=== PATIENT | male | born 1960 | race Caucasian/White ===

== ENCOUNTER → 2019-07-25 | Outpatient (CLI) | payer OTHER ==
--- NOTE | 2019-07-25 11:34 | US ---
EXAMINATION TYPE: US abdomen complete DATE OF EXAM: 07/25/2019 COMPARISON: NONE CLINICAL HISTORY: R10.30 Lower abdominal pain. EXAM MEASUREMENTS: Liver Length: 9.4 cm Gallbladder Wall: 0.3 cm CBD: 0.3 cm Spleen: 9.2 cm Right Kidney: 11.0 x 4.5 x 5.6 cm Left Kidney: 11.7 x 7.0 x 6.6 cm Pancreas: visualized portions wnl Liver: small left lobe cyst measures 0.5 x 0.5 x 0.7 cm Gallbladder: No stones seen Evidence for sonographic Farris's sign: No CBD: wnl Spleen: wnl Right Kidney: No hydronephrosis or masses seen Left Kidney: small cortical cyst measures 0.9 x 0.8 x 0.7 cm Upper IVC: wnl Abd Aorta: wnl Patient complains of lower abdominal pain. RLQ and LLQ imaged towards end of study. No definite abnor mality noted. The visualized liver is homogenous. Technologist Craig subcentimeter simple appearing thin-walled cyst in the left hepatic lobe. The intrahepatic portion of the IVC and visualized abdominal aorta are wi thin normal limits. There is no evidence of cholelithiasis. Common bile duct is unremarkable. The visualized portions of the pancreas are homogenous. The spleen is unremarkable. Kidneys are symmetr ic and free of hydronephrosis. No renal lesions are seen. IMPRESSION: No suspicious abnormality is seen to come for patient's symptoms of bilateral lower abdom inal pain.
== END | disposition home or self-care (01) ==
LOC: RADUSWWP 08:14
PROVIDERS: ATTEND Family Medicine
DX: R10.30 Lower abdominal pain, unspecified (principal)
CPT/HCPCS: 76700

== ENCOUNTER 2024-10-19 18:52 | Emergency (ER) | payer OTHER ==
[2024-10-19 19:06] VITALS: PULSE 70; RESP 18
--- NOTE | 2024-10-19 19:39 | ED ---
General Adult HPI - General Chief complaint: Extremity Injury, Upper Stated complaint: Right shoulder injury Time Seen by Provider: 10/19/24 19:05 Source: patient, RN notes reviewed, old records reviewed Mode of arrival: ambulatory Limitations: no limitations - History of Present Illness Initial comments: 64-year-old male presenting for evaluation of right shoulder pain. Patient has had pain for approximately 1 week. He has previous history of bilateral rotator cuff injury. He works a physically demanding job and does not remember a specific injury but does state that this is related to physical work. No fall. No difficulty breathing. No abdominal pain. No fever. No central chest pain. - Related Data Home Medications Medication Instructions Recorded Confirmed Propranolol HCl [Inderal Xl] 80 mg PO BID 04/01/15 04/01/15 raNITIdine HCL [Zantac] 300 mg PO DAILY 04/01/15 04/01/15 Previous Rx's Medication Instructions Recorded Ibuprofen [Motrin] 600 mg PO Q8HR PRN #24 tab 10/19/24 Allergies Allergy/AdvReac Type Severity Reaction Status Date / Time guaifenesin [From Mucinex] Allergy Unknown Verified 10/19/24 19:02 Review of Systems ROS Statement: Those systems with pertinent positive or pertinent negative responses have been documented in the HPI. ROS Other: All systems not noted in ROS Statement are negative. Past Medical History Past Medical History: GERD/Reflux, Hypertension, Neurologic Disorder Additional Past Medical History / Comment(s): MIGRAINES History of Any Multi-Drug Resistant Organisms: None Reported Past Surgical History: No Surgical Hx Reported Past Anesthesia/Blood Transfusion Reactions: No Reported Reaction Additional Past Anesthesia/Blood Transfusion Reaction / Comment(s): NO PRIOR ANESTHESIA HX Smoking Status: Current every day smoker Past Alcohol Use History: None Reported Past Drug Use History: None Reported - Past Family History Mother Family Medical History: No Reported History General Exam Limitations: no limitations General appearance: alert, in no apparent distress Head exam: Present: atraumatic, normocephalic Eye exam: Present: normal appearance, PERRL ENT exam: Present: normal exam Neck exam: Present: normal inspection Respiratory exam: Present: normal lung sounds bilaterally. Absent: respiratory distress, wheezes Cardiovascular Exam: Present: regular rate, normal rhythm GI/Abdominal exam: Present: soft. Absent: distended Extremities exam: Present: normal inspection. Absent: full ROM (Pain with range of motion of the right shoulder, distal pulses intact) Neurological exam: Present: alert, oriented X3 Psychiatric exam: Present: normal affect, normal mood Skin exam: Present: warm, dry, intact Course Vital Signs 10/19/24 19:03 Temperature 97.6 F Pulse Rate 70 Respiratory 18 Rate Blood Pressure 183/94 O2 Sat by Pulse 97 Oximetry Medical Decision Making - Medical Decision Making Was pt. sent in by a medical professional or institution (EMILY Mohr, INTERNAL GRINDER TENDER, urgent care, hospital, or jail...) When possible be specific @ -No Did you speak to anyone other than the patient for history (EMS, parent, family, police, friend...)? What history was obtained from this source @ -No Did you review nursing and triage notes (agree or disagree)? Why? @ -I reviewed and agree with nursing and triage notes Were old charts reviewed (outside hosp., previous admission, EMS record, old EKG, old radiological studies, urgent care reports/EKG's, jail records)? Report findings @ -No old charts were reviewed Differential Musculoskeletal Muscular strain, contusion, ligament sprain, fracture, arthritis, septic arthritis, bursitis, cellulitis, muscle spasm, nerve compression, DVT, arterial occlusion, herpes zoster, electrolyte abnormality, tumor.... This is not meant to be in all inclusive list EKG interpreted by me (3pts min.). @ -As above X-rays interpreted by me (1pt min.). @ -X-ray of the right shoulder is negative for displaced fracture, no dislocation CT interpreted by me (1pt min.). @ -None done U/S interpreted by me (1pt. min.). @ -None done What testing was considered but not performed or refused? (CT, X-rays, U/S, labs)? Why? @ -None What meds were considered but not given or refused? Why? @ -None Did you discuss the management of the patient with other professionals (professionals i.e. EMILY Mohr, INTERNAL GRINDER TENDER, lab, RT, psych nurse, social services coordinator, mica builder, teacher, public records officer, family caseworker)? Give summary @ -No Was smoking cessation discussed for >3mins.? @ -No Was critical care preformed (if so, how long)? @ -No Were there social determinants of health that impacted care today? How? (Homelessness, low income, unemployed, alcoholism, drug addiction, transportation, low edu. Level, literacy, decrease access to med. care, senior living, rehab)? @ -No Was there de-escalation of care discussed even if they declined (Discuss DNR or withdrawal of care, Hospice)? DNR status @ -No What co-morbidities impacted this encounter? (DM, HTN, Smoking, COPD, CAD, Cancer, CVA, ARF, Chemo, Hep., AIDS, mental health diagnosis, sleep apnea, morbid obesity)? @ -None Was patient admitted / discharged? Hospital course, mention meds given and route, prescriptions, significant lab abnormalities, going to OR and other pert inent info. @ -[64-year-old male with right shoulder pain, worse with range of motion. Patient afebrile with stable vitals. Distal pulses intact, normal steam fitter helper strength. Patient has had previous rotator cuff injury. I suspect rotator cuff injury currently. Patient attempted to follow-up with orthopedics but did run into insurance related issues. I recommend that he contacted both orthopedic [facility] in [facility] to see if his insurance is excepted. He will likely require MRI and does need orthopedic evaluation for this shoulder pain. Undiagnosed new problem with uncertain prognosis? @ -No Drug Therapy requiring intensive monitoring for toxicity (Heparin, Nitro, Insulin, Cardizem)? @ -No Were any procedures done? @ -No Diagnosis/symptom? @ -Shoulder pain Acute, or Chronic, or Acute on Chronic? @Acute Uncomplicated (without systemic symptoms) or Complicated (systemic symptoms)? @ -Default Side effects of treatment? @ -No Exacerbation, Progression, or Severe Exacerbation? @ -No Poses a threat to life or bodily function? How? (Chest pain, [place], AR, pneumonia, PE, COPD, DKA, ARF, appy, cholecystitis, CVA, Diverticulitis, Homicidal, Suicidal, threat to staff... and all critical care pts) @ -No Disposition Clinical Impression: Strain of shoulder Disposition: HOME SELF-CARE Condition: Fair Instructions (If sedation given, give patient instructions): Shoulder Sprain (ED) Prescriptions: Ibuprofen [Motrin] 600 mg PO Q8HR PRN #24 tab PRN Reason: Pain Is patient prescribed a controlled substance at d/c from ED?: No Referrals: Isabel Crystal MD [Primary Care Provider] - 1-2 days Zi,Zachary, MD [STAFF PHYSICIAN] - 1-2 days Robyn Islas DO [Doctor of Osteopathic Medicine] - 1-2 days Time of Disposition: 19:37
--- NOTE | 2024-10-19 19:43 | XR ---
EXAMINATION TYPE: XR shoulder complete RT DATE OF EXAM: 10/19/2024 7:28 PM COMPARISON: None available. CLINICAL INDICATION: Male, 64 years old with history of pain; [facility] TECHNIQUE: XR shoulder complete RT; examined in AP, internally rotated and scapular Y projections. FINDINGS: No evidence of acute osseous pathology, joint dislocation, or soft tissue swelling. The remaining po rtions of the visualized chest are unremarkable. IMPRESSION: No acute osseous pathology. [facility], , 10/19/2024 7:40 PM
[2024-10-19] MEDS: KETOROLAC 15 MG/ML 1 ML VIAL IM STA (19:54)
[2024-10-19 20:23] VITALS: BP 120/88; TEMP 98.1
== END 2024-10-19 20:23 | disposition home or self-care (01) ==
LOC: EC 18:52
DX: S46.911A Strain of unspecified muscle, fascia and tendon at shoulder and upper arm level, right arm, initial encounter (principal); F17.200 Nicotine dependence, unspecified, uncomplicated; Z88.8 Allergy status to other drugs, medicaments and biological substances; X58.XXXA Exposure to other specified factors, initial encounter; Y99.0 Civilian activity done for income or pay
CPT/HCPCS: 73030; 99283; 96372; J1885